=== PATIENT | male | born 1950 | race Asian ===

== ENCOUNTER 2016-08-17 07:08 | Outpatient (CLI) | payer OTHER ==
[~2016-08-17 07:08] MED LIST: ASPI81TA2 PO; SIMV10TA2 PO
[2016-08-17 08:26] LABS: ALANINE AMINOTRANSFERASE 30 U/L (12-78); ALBUMIN 4.2 g/dL (3.4-4.8); ANION GAP < 3 (5-15); ASPARTATE AMINOTRANSFERASE 27 U/L (10-37); BILIRUBIN,DIRECT 0.2 mg/dL (0.0-0.3); CALCIUM 8.9 mg/dL (8.4-11.0); CHLORIDE 106 mmol/L (98-107); CHOLESTEROL 154 mg/dL (<200); CREATININE 1.02 mg/dL (0.55-1.30); GFR AFRICAN AMERICAN 94 mL/min (>90); GLUCOSE 103 mg/dL (70-99); HDL CHOLESTEROL 46 mg/dL (>45); LDL CHOLESTEROL 90 mg/dL (<100); SODIUM SERUM 138 mmol/L (136-145); TOTAL BILIRUBIN 1.4 mg/dL (0.0-1.0); TOTAL PROTEIN, SERUM 7.5 g/dL (6.4-8.3); TRIGLYCERIDES 74 mg/dL (30-150); UREA NITROGEN, BLOOD 19 mg/dL (8-21)
== END 2016-08-17 20:00 | disposition home or self-care (01) ==
LOC: SLB 07:08
PROVIDERS: ATTEND Family Medicine
DX: R73.09 Other abnormal glucose (principal); R79.89 Other specified abnormal findings of blood chemistry
CPT/HCPCS: 36415; 80048; 80061; 80076; 83036

== ENCOUNTER 2016-10-23 19:14 | Emergency (ER) | payer OTHER ==
[~2016-10-23] VITALS: Ht 170.2 cm; Wt 61.2 kg
[2016-10-23 19:30] VITALS: BP_SYST 139
--- NOTE | 2016-10-23 19:31 | NUR ---
Placed in room 02 . Placed on vehicle monitor technician, blood pressure machine and pulse oximeter. To gown for exam. Side rails up. .
--- NOTE | 2016-10-23 19:33 | NUR ---
Patient AAOx4, ambulatory with steady gait. Patient states having dizziness for approximately 4 days prior to ER visit, denies SOB or visual disturbances. Patient states dizziness is present when moving from sitting to standing position. Patient denies any other complaints.
--- NOTE | 2016-10-23 20:00 | NUR ---
ER Dr. Verma at bedside examining patient.
--- NOTE | 2016-10-23 20:46 | NUR ---
# 20 gauge angiocath placed to left forearm. Use of asceptic technique. Blood return noted. Blood for lab drawn from site. Flushed with 10 cc of normal saline. No evidence of infiltration noted. Patient tolerated well.
--- NOTE | 2016-10-23 20:46 | NUR ---
Note ismaone in EDM - 10/23/16 at 2047 by HORACE # 20 gauge angiocath placed to left forearm. Use of asceptic technique. Opsite placed over site. Blood return noted. Blood for lab drawn from site. Flushed with 10 cc of normal saline. No evidence of infiltration noted. Patient tolerated well.
--- NOTE | 2016-10-23 20:52 | NUR ---
Orthostatic vital signs done.
[2016-10-23] MEDS ORDERED: NACL 0.9% 1,000 ML IV ONE (20:54)
[2016-10-23] MEDS ORDERED: ONDANSETRON HCL 4 MG/2 ML VIAL IVP ONE (21:00)
[2016-10-23 21:13] LABS: BASOPHILS # (AUTO) 0.1 K/uL (0.0-0.2); BASOPHILS % (AUTO) 0.7 % (0.0-2.0); EOSINOPHILS # (AUTO) 0.1 K/uL (0.0-0.4); HEMATOCRIT 45.2 % (36-54); HEMOGLOBIN 14.9 g/dL (14.0-18.0); LYMPHOCYTES # (AUTO) 2.2 K/uL (1.0-5.5); LYMPHOCYTES % (AUTO) 30.3 % (20.5-51.5); MEAN CORPUSCULAR HEMOGLOBIN 30 pg (27-31); MEAN CORPUSCULAR HGB CONC 33 % (32-36); MEAN CORPUSCULAR VOLUME 91 fL (79.0-98.0); MONOCYTES # (AUTO) 0.8 K/uL (0.0-1.0); MONOCYTES % (AUTO) 11.3 % (1.7-9.3); NEUTROPHILS % (AUTO) 55.7 % (40.0-70.0); PLATELET COUNT (AUTO) 210 K/uL (130-430); RED BLOOD CELL COUNT(AUTO) 4.99 MIL/uL (4.2-6.2); RED CELL DISTRIBUTION WIDTH 12.1 % (9.0-15.0); WHITE BLOOD COUNT (AUTO) 7.2 K/uL (4.8-10.8)
[2016-10-23 21:15] LABS: ALBUMIN 3.8 g/dL (3.4-4.8); CALCIUM 9.1 mg/dL (8.4-11.0); CREATININE 1.05 mg/dL (0.55-1.30); POTASSIUM 3.8 mmol/L (3.5-5.1); TOTAL BILIRUBIN 0.9 mg/dL (0.0-1.0)
[2016-10-23 21:33] LABS: BILIRUBIN,URINE NEGATIVE (NEGATIVE); BLOOD, URINE NEGATIVE (NEGATIVE); CLARITY/URINE CLEAR (CLEAR); COLOR,URINE YELLOW (YELLOW); GLUCOSE,URINE NEGATIVE (NEGATIVE); KETONES,URINE NEGATIVE (NEGATIVE); LEUKOCYTE ESTERASE ,URINE NEGATIVE (NEGATIVE); NITRITE, URINE NEGATIVE (NEGATIVE); PH,URINE 6.5 (5.0-8.0); PROTEIN URINE NEGATIVE (NEGATIVE); UROBILINOGEN,URINE 0.2 (0.2-1.0)
[2016-10-23 22:05] VITALS: BP_SYST 125
--- NOTE | 2016-10-23 22:05 | NUR ---
Patient given written and verbal discharge instructions and verbalizes understanding. ER MD discussed with patient the results and treatment provided. Patient in stable condition. ID arm band removed. IV catheter removed intact and dressing applied, no active bleeding. No RX given. Patient educated on pain management and to follow up with PMD. Pain Scale 0/10. Opportunity for questions provided and answered.
== END 2016-10-23 22:05 | disposition home or self-care (01) ==
LOC: SED 19:14
DX: E86.0 Dehydration (principal); E78.00 Pure hypercholesterolemia, unspecified
CPT/HCPCS: 36415; 80053; 81003; 85025; 96361; 96374; 99284; J2405; J7030

== ENCOUNTER 2017-04-04 07:02 | Day surgery (SDC) | payer OTHER ==
[2017-04-04] MEDS ORDERED: MEPERIDINE HCL/PF 100 MG/ML AMP ONE (07:17)
[2017-04-04] MEDS ORDERED: SIMETHICONE 40 MG/0.6 ML ML ONE (07:17)
[2017-04-04] MEDS: MIDAZOLAM HCL 5 MG/5 ML VIAL ONE ×2 (08:39→08:42)
[2017-04-04 12:49] VITALS: BP_SYST 128
== END 2017-04-04 10:00 | disposition home or self-care (01) ==
LOC: SMU 07:02 → SDS 07:02
PROVIDERS: ATTEND Internal Medicine Gastroenterology
DX: Z09 Encounter for follow-up examination after completed treatment for conditions other than malignant neoplasm (principal); Z86.010 Personal history of colon polyps; D12.4 Benign neoplasm of descending colon; K64.8 Other hemorrhoids
CPT/HCPCS: 45380; 88305; J2175; J2250

== ENCOUNTER 2017-04-26 07:18 | Outpatient (CLI) | payer OTHER ==
[2017-04-26 08:09] LABS: ALBUMIN 4.4 g/dL (3.4-4.8); BASOPHILS % (AUTO) 0.5 % (0.0-2.0); CALCIUM 9.8 mg/dL (8.4-11.0); CREATININE 0.92 mg/dL (0.55-1.30); EOSINOPHILS # (AUTO) 0.1 K/uL (0.0-0.4); EOSINOPHILS % (AUTO) 1.9 % (0.0-4.0); HEMATOCRIT 52.9 % (36-54); HEMOGLOBIN 16.8 g/dL (14.0-18.0); LYMPHOCYTES # (AUTO) 1.8 K/uL (1.0-5.5); LYMPHOCYTES % (AUTO) 31.9 % (20.5-51.5); MEAN CORPUSCULAR HEMOGLOBIN 29 pg (27-31); MEAN CORPUSCULAR HGB CONC 32 % (32-36); MEAN CORPUSCULAR VOLUME 91 fL (79.0-98.0); MONOCYTES # (AUTO) 0.8 K/uL (0.0-1.0); MONOCYTES % (AUTO) 13.8 % (1.7-9.3); NEUTROPHILS % (AUTO) 51.9 % (40.0-70.0); PLATELET COUNT (AUTO) 255 K/uL (130-430); POTASSIUM 5.4 mmol/L (3.5-5.1); RED BLOOD CELL COUNT(AUTO) 5.81 MIL/uL (4.2-6.2); RED CELL DISTRIBUTION WIDTH 12.1 % (9.0-15.0); TOTAL BILIRUBIN 1.5 mg/dL (0.0-1.0); WHITE BLOOD COUNT (AUTO) 5.7 K/uL (4.8-10.8)
[2017-04-27 07:23] LABS: HEMOGLOBIN A1C 5.6 % (4.8-5.6)
[2017-04-27 08:54] LABS: PROSTATE SPECIFIC AG 0.5 ng/mL (0.0-4.0)
== END 2017-04-26 19:33 | disposition home or self-care (01) ==
LOC: SLB 07:18
PROVIDERS: ATTEND Family Medicine
DX: Z00.01 Encounter for general adult medical examination with abnormal findings (principal); E78.2 Mixed hyperlipidemia; R73.09 Other abnormal glucose
CPT/HCPCS: 36415; 80053; 80061; 83036; 84153; 85025

== ENCOUNTER 2017-06-17 08:17 | Outpatient (CLI) | payer OTHER ==
[2017-06-17 09:27] LABS: ALBUMIN 3.7 g/dL (3.4-4.8); CALCIUM 9.1 mg/dL (8.4-11.0); CREATININE 0.86 mg/dL (0.55-1.30); POTASSIUM 4.6 mmol/L (3.5-5.1); TOTAL BILIRUBIN 1.2 mg/dL (0.0-1.0)
== END 2017-06-17 20:22 | disposition home or self-care (01) ==
LOC: SLB 08:17
PROVIDERS: ATTEND Family Medicine
DX: E87.5 Hyperkalemia (principal); R73.09 Other abnormal glucose
CPT/HCPCS: 36415; 80053

== ENCOUNTER 2017-07-07 01:08 | Emergency (ER) | payer OTHER ==
[~2017-07-07] VITALS: Ht 170.2 cm; Wt 63.5 kg
[2017-07-07 01:08] VITALS: BP_SYST 137
[2017-07-07 02:45] VITALS: BP_SYST 131
== END 2017-07-07 02:45 | disposition home or self-care (01) ==
LOC: SED 01:08
DX: H92.01 Otalgia, right ear (principal); E78.00 Pure hypercholesterolemia, unspecified
CPT/HCPCS: 99282

== ENCOUNTER 2017-09-12 07:15 | Outpatient (CLI) | payer OTHER ==
[2017-09-12 08:24] LABS: CREATININE 1.04 mg/dL (0.55-1.30); POTASSIUM 4.6 mmol/L (3.5-5.1); TOTAL BILIRUBIN 1.3 mg/dL (0.0-1.0)
== END 2017-09-12 20:39 | disposition home or self-care (01) ==
LOC: SLB 07:15
PROVIDERS: ATTEND Family Medicine
DX: E78.2 Mixed hyperlipidemia (principal); R73.09 Other abnormal glucose
CPT/HCPCS: 36415; 80053; 80061; 83036

== ENCOUNTER 2017-12-16 07:42 | Outpatient (CLI) | payer OTHER ==
[~2017-12-16 07:42] MED LIST changes: +ASPI-1155 PO; -ASPI81TA2 PO
[2017-12-16 08:41] LABS: ALBUMIN 4.3 g/dL (3.4-4.8); CALCIUM 9.3 mg/dL (8.4-11.0); CREATININE 0.88 mg/dL (0.55-1.30); POTASSIUM 4.2 mmol/L (3.5-5.1); TOTAL BILIRUBIN 1.4 mg/dL (0.0-1.0)
== END 2017-12-16 19:00 | disposition home or self-care (01) ==
LOC: SLB 07:42
PROVIDERS: ATTEND Physician Assistant Medical
DX: E78.2 Mixed hyperlipidemia (principal); I10 Essential (primary) hypertension
CPT/HCPCS: 36415; 80053; 80061